=== PATIENT | female | born 1935 | race Caucasian/White ===

== ENCOUNTER 2018-01-28 16:31 | Inpatient (IN) | payer MEDICARE, MEDICAID ==
[2018-01-28] MEDS ORDERED: Sodium Chloride 0.9% 1,000 ML IV ONE (17:18)
--- NOTE | 2018-01-28 17:24 | ED Physician Chart ---
ED Chief Complaint/HPI - Patient Information Date Seen:: 01/28/18 Time Seen:: 16:40 Chief Complaint:: Anorexia History of Present Illness:: onset x 3 days of failure to thrive, anorexia, and poor oral intake; no report of trauma, H/As, S/T, neck pain, C/P, SOB, Abd. Pain, N/V/D/c, fever, chills, or urinary s/s Allergies:: Allergies Allergy/AdvReac Type Severity Reaction Status Date / Time No Known Allergies Allergy Verified 01/28/18 16:40 Vitals:: Vital Signs - 8 hr 01/28/18 16:40 Temp 98.1 F HR 56 RR 16 BP 188/71 O2 Sat % 100 Historian:: Patient, EMS Review:: Nurse's Note Reviewed, Old Chart Reviewed, EMS run form Reviewed ED Review of Systems - Review of Systems General/Constitutional: Fever, No chills, No weight loss, Weakness, No diaphoresis, No edema, No loss of appetite Skin: No skin lesions, No rash, No bruising Head: No headache, No light-headedness Eyes: No loss of vision, No pain, No diplopia ENT: No earache, No nasal drainage, No sore throat, No tinnitus Neck: No neck pain, No swelling, No thyromegaly, No stiffness, No mass noted Cardio Vascular: No chest pain, No palpitations, No PND, No orthopnea, No edema Pulmonary: No SOB, No cough, No sputum, No wheezing GI: No nausea, No vomiting, No diarrhea, No pain, No melena, No hematochezia, No constipation, No hematemesis G/U: No dysuria, No frequency, No hematuria, No nacturia [employer]ing [employer]: No vaginal discharge, No abnormal vaginal bleed, No contraction Musculoskeletal: No bone or joint pain, No back pain, No muscle pain Endocrine: No polyuria, No polydipsia Psychiatric: Prior psych history, No depression, Anxiety, No suicidal ideation, No homicidal ideation, No auditory hallucination, No visual hallucination Hematopoietic: No bruising, No lymphadenopathy Allergic/Immuno: No urticaria, No angioedema Neurological: No syncope, No focal symptoms, Weakness, No paresthesia, No headache, No seizure, No dizziness, Confusion, No vertigo ED Past Medical History - Past Medical History Obtainable: Yes Past Medical History: HTN, Thyroid disorder, Dementia Family History: HTN Social History: Non Smoker, No Alcohol, No Drug Use, , Care Facility Surgical History: None Psychiatricy History: Dementia Medication: Reviewed Family Medical History - Family Member Mother History Unknown: Yes Living Status: ED Physical Exam - Physical Examination General/Constitutional: Awake, Well-developed, well-nourished, Alert, No distress, GCS 15, Non-toxic appearing, Ambulatory Head: Atraumatic Eyes: Lids, conjuctiva normal, PERRL, EOMI Skin: Nl inspection, No rash, No skin lesions, No ecchymosis, Well hydrated, No lymphadenopathy ENMT: External ears, nose nl, TM canals nl, Nasal exam nl, Lips, teeth, gums nl , Oropharynx nl, Tonsils nl Neck: Nontender, Full ROM w/o pain, No JVD, No nuchal rigidity, No bruit, No mass, No stridor Other Neck comments:: supple; no meningeal signs Respiratory: Nl effort/Exclusion, Clear to Auscultation, No Wheeze/Rhonchi/Rales Cardio Vascular: RRR, No murmur, gallop, rubs, NL S1 S2, Carotid/Femoral/Distal pulses equal bilaterally GI: No tenderness/rebounding/guarding, No organomegaly, No hernia, Normal BS's, Nondistended, No mass/bruits, No McBurney tenderness, Rectum exam nl Other GI comments:: no pulsatile masses : No CVA tenderness Extremities: No tenderness or effusion, Full ROM, normal strength in all extremities, No edema, Normal digits & nails Neuro/Psych: Alert/oriented, DTR's symmetric, Normal sensory exam, Normal motor strength, Judgement/insight normal, Mood normal, Normal gait, No focal deficits Misc: Normal back, No paraspinal tenderness ED Labs/Radiology/EKG Results - Lab Results Comments:: WBC: 11.6 - EKG Interpretations EKG Time:: 17:27 Rate & Rhythm: 52; NSR Comments:: non-specific st-t changes ED Septic Shock - . Is Septic Shock (SBP<90, OR Lactate>4 mmol\L) present?: No - <6hrs of presentation: Vital Signs: Vital Signs - 8 hr 01/28/18 16:40 Temp 98.1 F HR 56 RR 16 BP 188/71 O2 Sat % 100 ED Reassessment (Disposition) - Reassessment Reassessment Condition:: Improved - Diagnosis Diagnosis:: Failure to Thrive; Poor Oral Intake; Leukocytosis;
[2018-01-28 17:52] LABS: % BASOPHILS 0.7 % (0.0-2.0); % EOSINOPHILS 1.6 % (0.0-5.0); % LYMPHOCYTES 21.6 % (20.0-50.0); % MONOCYTES 5.6 % (2.0-10.0); % NEUTROPHILS 70.5 % (40.0-80.0); BASOPHILE ABSOLUTE 0.1 Th/cumm (0-0.2); EOSINOPHILE ABSOLUTE 0.2 Th/cmm (0.1-0.4); HEMATOCRIT 45.3 % (41.0-60); HEMOGLOBIN 15.1 gm/dL (12-16); LYMPHOCYTE ABSOLUTE 2.5 Th/cmm (1.5-3.0); MEAN CELL VOLUME 97.3 fl (81-100); MEAN CORPUSCULAR HEMOGLOBIN 32.4 pg (27.0-31.0); MEAN CORPUSCULAR HGB CONC 33.4 pg (28.0-36.0); MONOCYTE ABSOLUTE 0.6 Th/cmm (0.3-1.0); NEUTROPHILE ABSOLUTE 8.2 Th/cmm (1.8-8.0); PLATELET COUNT 295 Th/cmm (150-400); RED BLOOD COUNT 4.66 Mil/cmm (3.80-5.20); RED CELL DISTRIBUTION WIDTH 14.2 % (11.5-20.0); WHITE BLOOD COUNT 11.6 Th/cmm (4.8-10.8)
[2018-01-28 18:01] LABS: INR 0.88 (0.5-1.4)
[2018-01-28 18:04] LABS: ALB/GLOB RATIO 1.5 (1.0-1.8); ALBUMIN 3.7 gm/dL (3.7-5.3); ALKALINE PHOSPHATASE 56 U/L (34-104); ANION GAP 10.9 (7.0-16.0); BILIRUBIN,TOTAL 0.3 mg/dL (0.3-1.0); BUN - UREA NITROGEN 22 mg/dL (7-25); CALCIUM SERUM 9.8 mg/dL (8.6-10.3); CARBON DIOXIDE 26.4 mEq/L (21.0-31.0); CHLORIDE 111 mEq/L (98-107); CREATININE - SERUM 0.9 mg/dL (0.6-1.2); CREATININE KINASE 21 U/L (30-223); GLUCOSE 90 mg/dL (70-105); POTASSIUM SERUM 4.3 mEq/L (3.5-5.1); SGOT 12 U/L (13-39); SGPT/ALT 11 U/L (7-52); SODIUM SERUM 144 mEq/L (136-145); TOTAL PROTEIN,SERUM 6.2 gm/dL (6.0-8.3)
[2018-01-28 18:08] LABS: TROP I < 0.01 ng/mL (0.01-0.05)
[2018-01-28 21:48] VITALS: BP 157/54
[2018-01-28] MEDS ORDERED: Maalox 30 mL Cup PO PRN (22:22)
[2018-01-28] MEDS ORDERED: Magnesium Hydroxide (MOM) 30 mL UDC PO PRN (22:22)
[2018-01-28] MEDS ORDERED: Hydrocodone/APAP 10 mg/325 mg Tab PO PRN (22:25)
[2018-01-28] MEDS ORDERED: Hydrocodone/APAP 5mg/325mg Tab PO PRN (22:25)
[2018-01-28] MEDS: D5-0.45NS 1,000 ML IV SCH (23:00)
[2018-01-29] MEDS: Levothyroxine 0.1 Mg Tab PO SCH (08:10)
--- NOTE | 2018-01-29 08:27 | Diagnostic Imaging Report ---
CHEST X-RAY: AP view INDICATION: pain COMPARISON: None FINDINGS: Chronic lung changes are noted. No focal consolidation or effusions. Heart size is normal. Mild tortuosity of thoracic aorta is noted with atherosclerosis. Degenerative changes of the spine and shoulders are noted. There is evidence of calcific tendinitis of the right shoulder. IMPRESSION: Chronic lung changes and possible COPD. No focal consolidation identified Atherosclerotic vascular disease.
[2018-01-29] MEDS: D5-0.45NS 1,000 ML IV SCH ×2 (10:28→21:01)
--- NOTE | 2018-01-29 13:02 | Diagnostic Imaging Report ---
KUB single view HISTORY: Abdominal pain. COMPARISON: None FINDINGS: Moderate stool is seen with gas-filled loops of bowel in a nonspecific pattern. The osseous structures are intact. IMPRESSION: Moderate stool. Overall nonspecific bowel gas pattern.
--- NOTE | 2018-01-29 13:23 | History & Physical ---
ADMIT DATE: 01/28/2018 CHIEF COMPLAINT: The patient is anorexia. HISTORY OF PRESENT ILLNESS: The patient is an 82-year-old white female who has been transferred from [facility] for 3 days of failure to thrive, anorexia and poor oral intake. No other complaints. ALLERGIES: No known allergies. MEDICATIONS: Metformin and other meds SOCIAL HISTORY: No reported smoking, drinking alcohol or drug use. The patient is a resident of [facility]. PAST MEDICAL HISTORY: Hypertension, dementia, and hypothyroidism. PAST SURGICAL HISTORY: Negative. PSYCHIATRIC HISTORY: Dementia. MEDICATIONS: See medication reconciliation form. PHYSICAL EXAMINATION: GENERAL: The patient is awake, nontoxic in appearance. VITAL SIGNS: On admission, temperature 98.1, pulse 56, blood pressure per nursing, respiratory rate is 16, O2 sats are 100% on room air. HEENT: Normocephalic, atraumatic. Extraocular movements intact. Pupils are equal. Oropharynx is clear. NECK: Supple. No thyromegaly. CARDIOVASCULAR: S1, S2. No murmurs, rubs, clicks or gallops. RESPIRATORY: Clear. No wheezes or rhonchi. GASTROINTESTINAL: Soft, nontender, and nondistended. Bowel sounds present. GENITOURINARY: No CVA tenderness or suprapubic tenderness. BACK: Limited tenderness. EXTREMITIES: Equal pulses bilaterally. SKIN: Negative. NEUROLOGIC: Cranial nerves are intact. Extraocular movements are intact. Neurovascular is intact. Bilateral upper and lower muscles are grossly normal. LABORATORY DATA: Hematology: WBC 11.6, hemoglobin 15.1, hematocrit per labs, platelet count of 295, no left shift noted. PT 9.0, INR 0.88, PTT 24.7. Chemistry: Sodium 144, potassium 4.3, chloride 111, bicarbonate 26, Anion gap 10, BUN 22, creatinine 0.9, glucose is 90, lactic acid 1.35, calcium 9.8, total bilirubin 0.3, AST 12, ALT 11, alkaline phosphatase 56. Creatinine kinase 21. Troponin less than 0.01. Total protein 6.2, albumin 3.7, globulin 2.5. MICROBIOLOGY: The results are pending. RADIOLOGY: Chest x-ray shows chronic lung changes and possible COPD. No focal consolidation identified. Atherosclerotic vascular disease. IMPRESSION: 1. Leukocytosis. 2. Hyperchloremia. 3. Failure to thrive. 4. Hypertension. 5. Hypothyroidism. 6. Dementia. PLAN: The patient admitted to Med/Surg unit at [facility], seen by Dr. Vishal Espana. Infectious Disease consultation, Dr. Elian Do. We will obtain further labs and consultation as needed. JOB# [id number] NOAM
[2018-01-29 13:41] LABS: URINE MICROSCOPIC INDICATED? YES; URINE SOURCE MIDSTREAM
[2018-01-29 13:49] LABS: URINE BILIRUBIN NEGATIVE (NEGATIVE); URINE BLOOD TRACE (NEGATIVE); URINE GLUCOSE (UA) NEGATIVE (NEGATIVE); URINE KETONE NEGATIVE (NEGATIVE); URINE LEUKOCYTE ESTERASE NEGATIVE (NEGATIVE); URINE NITRATE NEGATIVE (NEGATIVE); URINE PH 6.5 (4.6 - 8.0); URINE PROTEIN NEGATIVE (NEGATIVE); URINE UROBILINOGEN 0.2 E.U./dL (0.2 - 1.0)
[2018-01-29 13:57] LABS: URINE BACTERIA NONE SEEN /hpf (NONE SEEN); URINE CLARITY CLEAR (CLEAR); URINE COLOR YELLOW; URINE EPITHELIAL CELLS OCCASIONAL /lpf (FEW); URINE WBC 0-2 /hpf (0-5)
[2018-01-29] MEDS: cefTRIAXone 1 GM in Sodium Chloride 0.9% 50 ML IV SCH (20:59)
[2018-01-30 06:15] LABS: HEMATOCRIT 42.1 % (41.0-60); HEMOGLOBIN 14.3 gm/dL (12-16); MEAN CELL VOLUME 97.6 fl (81-100); MEAN CORPUSCULAR HEMOGLOBIN 33.2 pg (27.0-31.0); MEAN PLATELET VOLUME 8.6 fl; PLATELET COUNT 285 Th/cmm (150-400); RED BLOOD COUNT 4.31 Mil/cmm (3.80-5.20); RED CELL DISTRIBUTION WIDTH 13.8 % (11.5-20.0)
[2018-01-30] MEDS: D5-0.45NS 1,000 ML IV SCH ×2 (06:34→16:18)
[2018-01-30 06:37] LABS: ANION GAP 8.2 (7.0-16.0); BUN - UREA NITROGEN 12 mg/dL (7-25); CALCIUM SERUM 9.3 mg/dL (8.6-10.3); CARBON DIOXIDE 26.5 mEq/L (21.0-31.0); CHLORIDE 112 mEq/L (98-107); CREATININE - SERUM 0.8 mg/dL (0.6-1.2); GLUCOSE 106 mg/dL (70-105); POTASSIUM SERUM 3.7 mEq/L (3.5-5.1); SODIUM SERUM 143 mEq/L (136-145)
[2018-01-30] MEDS: Levothyroxine 0.1 Mg Tab PO SCH (06:52)
[2018-01-30 07:24] LABS: BAND NEUTROPHILE 0 % (0-10); LYMPHOCYTE 44 % (20-50); MONOCYTE 9 % (2-10); NEUTROPHILS 43 % (40-80)
[2018-01-30 07:25] LABS: BASOPHIL 1 % (0-3); EOSINOPHIL 3 % (0-5)
[2018-01-30 08:46] LABS: ESR SEDIMENTATION SED RATE 11 mm/hr (0-30)
--- NOTE | 2018-01-30 19:58 | Progress Notes ---
DATE: 01/30/2018 SUBJECTIVE: The patient is asleep. The patient is on IV antibiotics. The patient is on IV fluids. OBJECTIVE: VITAL SIGNS: Temperature 96.8, pulse of 40, blood pressure 131/50, respirations 17, O2 100% on room air. CARDIOVASCULAR: S1, S2. RESPIRATORY: Clear. ABDOMEN: Soft. Positive bowel sounds. LABORATORY DATA: The patient has hematology 7, hemoglobin is 14.3, hematocrit 41, platelet count of 285. No left shift noted. Chemistry: Sodium 143, potassium 3.7, chloride 112, bicarbonate 27, anion gap 8.2, BUN 12, creatinine 0.8. GFR unavailable. Glucose 106, calcium 9.3. C-reactive protein was 0.2. MICROBIOLOGY: Blood culture from 01/28/2018 shows no growth. RADIOLOGY: KUB x-ray performed on 01/29/2018 shows moderate stool. ASSESSMENT: Overall, nonspecific bowel gas pattern. IMPRESSION: 1. Leukocytosis, improved. 2. Failure to thrive. 3. Hypertension. 4. Hypothyroidism. 5. Dementia. PLAN: Continue current management and treatment. Obtain labs in a.m. Awaiting culture results. Further consults. JOB# [id number]
[2018-01-30] MEDS: cefTRIAXone 1 GM in Sodium Chloride 0.9% 50 ML IV SCH (20:47)
--- NOTE | 2018-01-30 22:18 | Consultation ---
DATE OF CONSULTATION: 01/29/2018 INFECTIOUS DISEASE CONSULT HISTORY OF PRESENT ILLNESS: This is an 82-year-old female who was brought to the Emergency Room with complaint of anorexia and poor intake. The patient also has diarrhea and was evaluated in the ER and admitted to the hospital. Infectious consultation was called for further treatment. The patient unable to provide history. Discussed with the staff. Urine is foul smelling. History of possible UTI, UA, urine culture requested. Stool cultures, stool for C.diff, stool for WBC requested. The patient started Rocephin and old chart was reviewed. Pertinent information obtained. PAST MEDICAL HISTORY: Alzheimer disease, COPD, essential hypertension, hypothyroidism. FAMILY HISTORY: Hypertension. SOCIAL HISTORY: Nonsmoker. ALLERGIES: None. REVIEW OF SYSTEMS: A 14-point review of systems unable to obtain. No fall, trauma, seizure, bleeding. The patient does have diarrhea and foul-smelling urine. No cough, no chest pain, no swelling of extremities. Rest of the review of systems unable to obtain. PHYSICAL EXAMINATION: GENERAL: The patient is an elderly female, confused secondary to dementia. VITAL SIGNS: Temperature is 97.5, pulse 79, respirations 18, blood pressure 136/79. HEENT: Mild pallor, no icterus or plaque. NECK: Supple. LUNGS: Breath sounds bilaterally. CARDIOVASCULAR: S1. ABDOMEN: Soft, increased bowel sounds present. NODES: No cervical lymph nodes. DIAGNOSES: Diarrhea, gastroenteritis, rule out toxin versus bacterial versus viral versus medication. Milk of magnesium is p.r.n. has been stopped. The patient started on Rocephin. Blood culture was sent already. Also, interviewed the patient white count is 11,000, hemoglobin 15 grams, platelets 295. OTHER DIAGNOSES: Anorexia, may need GI consult. Hypertension, controlled with amlodipine, dementia, Aricept, hypothyroidism, thyroid, anxiety, lorazepam. Rest of the care as ordered in CPOE. Pain controlled with Ranger. Thank you Dr. Espana for this consultation. JOB# [id number]
[2018-01-31] MEDS: D5-0.45NS 1,000 ML IV SCH (02:23)
[2018-01-31 06:06] LABS: ANION GAP 8.3 (7.0-16.0); BUN - UREA NITROGEN 11 mg/dL (7-25); CALCIUM SERUM 9.4 mg/dL (8.6-10.3); CARBON DIOXIDE 25.6 mEq/L (21.0-31.0); CHLORIDE 111 mEq/L (98-107); GLUCOSE 81 mg/dL (70-105); POTASSIUM SERUM 3.9 mEq/L (3.5-5.1); SODIUM SERUM 141 mEq/L (136-145)
[2018-01-31 06:15] LABS: % EOSINOPHILS 2.3 % (0.0-5.0); % LYMPHOCYTES 40.8 % (20.0-50.0); % MONOCYTES 8.1 % (2.0-10.0); % NEUTROPHILS 47.8 % (40.0-80.0); BASOPHILE ABSOLUTE 0.1 Th/cumm (0-0.2); EOSINOPHILE ABSOLUTE 0.2 Th/cmm (0.1-0.4); HEMATOCRIT 43.2 % (41.0-60); HEMOGLOBIN 14.4 gm/dL (12-16); LYMPHOCYTE ABSOLUTE 2.8 Th/cmm (1.5-3.0); MEAN CELL VOLUME 97.1 fl (81-100); MEAN CORPUSCULAR HEMOGLOBIN 32.4 pg (27.0-31.0); MEAN CORPUSCULAR HGB CONC 33.3 pg (28.0-36.0); MEAN PLATELET VOLUME 9.2 fl; MONOCYTE ABSOLUTE 0.6 Th/cmm (0.3-1.0); NEUTROPHILE ABSOLUTE 3.2 Th/cmm (1.8-8.0); PLATELET COUNT 295 Th/cmm (150-400); RED BLOOD COUNT 4.45 Mil/cmm (3.80-5.20); RED CELL DISTRIBUTION WIDTH 13.5 % (11.5-20.0); WHITE BLOOD COUNT 6.9 Th/cmm (4.8-10.8)
[2018-01-31] MEDS: Levothyroxine 0.1 Mg Tab PO SCH (06:36)
[2018-01-31 07:09] LABS: ESR SEDIMENTATION SED RATE 15 mm/hr (0-30)
--- NOTE | 2018-01-31 21:20 | Discharge Summary ---
DATE OF DISCHARGE: 01/31/2018 DISCHARGE DIAGNOSES: 1. Gastroenteritis. 2. Leukocytosis (resolved). 3. Failure to thrive. 4. Hypertension. 5. Hypothyroidism. 6. Dementia. HOSPITAL COURSE: The patient is a 2-year-old white female who was transferred from [facility] for 3 days of failure to thrive, anorexia and poor oral intake. On arrival at [facility] ER, the patient was found to have elevated white count. ID consult was obtained from Dr. Elian Do and kent culture was ordered. Results of the kent culture showed no growth. Urine culture ____ stella. Per ____ Infectious Disease, the patient is failure to thrive and looks like secondary to gastritis. RECOMMENDATION: To continue with IV Rocephin until 02/05/2018. The patient will be discharged back to skilled facility. JOB# [id number]
--- NOTE | 2018-02-01 09:57 | Progress Notes ---
DATE: 01/31/2018 SUBJECTIVE: The patient is awake, alert. The patient is on IV antibiotics. The patient is on IV fluids. OBJECTIVE: VITAL SIGNS: Temperature 97.7, pulse 55, blood pressure 179/124, respirations 18, O2 sat 98% on room air. CARDIOVASCULAR: S1 and S2. RESPIRATORY: Clear. ABDOMEN: Soft. Positive bowel sounds. LABORATORY DATA: Hematology: WBC of 6.9, hemoglobin 14.4 and hematocrit 43.2, platelet count of 295, no left shift noted. ESR is 15. Chemistry: Sodium 141, potassium 3.9, chloride 111, bicarb 25, anion gap 8.3, BUN 11, creatinine ____. GFR unavailable, glucose 81, calcium is 9.4. ____ 0.2. MICROBIOLOGY: MRSA screening from 01/28/2018 negative. Blood culture from 01/28/2018 shows no growth. Urine culture from 01/29/2018 shows mixed urogenital stella. ASSESSMENT: 1. Hyperchloremia. 2. Failure to thrive, was improved. 3. Hypertension. 4. Hypothyroidism. 5. Dementia. PLAN: Continue current medication and treatment. Further consults. He is now for discharge planning. We will discuss with Infectious Disease regarding discharge medications. JOB# [id number]
== END 2018-01-31 18:50 | DRG 392 ==
LOC: ER 16:31 → MSI 18:15
PROVIDERS: ADMIT Preventive Medicine Preventive Medicine/Occupational Environmental Medicine; ATTEND Preventive Medicine Preventive Medicine/Occupational Environmental Medicine
DX: K52.9 Noninfective gastroenteritis and colitis, unspecified (principal); K29.70 Gastritis, unspecified, without bleeding; R63.0 Anorexia; R62.7 Adult failure to thrive; I10 Essential (primary) hypertension; E03.9 Hypothyroidism, unspecified; E87.8 Other disorders of electrolyte and fluid balance, not elsewhere classified; G30.9 Alzheimer's disease, unspecified; F02.80 Dementia in other diseases classified elsewhere, unspecified severity, without behavioral disturbance, psychotic disturbance, mood disturbance, and anxiety; J44.9 Chronic obstructive pulmonary disease, unspecified; F41.9 Anxiety disorder, unspecified; Z66 Do not resuscitate; Z68.21 Body mass index [BMI] 21.0-21.9, adult; Z82.49 Family history of ischemic heart disease and other diseases of the circulatory system
CPT/HCPCS: 36415-UA; 71045-TC; 74000-TC; 80048-TC; 80053-TC; 81001-TC; 82550-TC; 83605; 84484-TC; 85007-TC; 85025-TC; 85610-TC; 85652-TC; 85730-TC; 86141-TC; 87086-90; 93005; J0696; J2060; J7030; X3904